=== PATIENT | male | born 1970 | race Caucasian/White ===

== ENCOUNTER 2020-09-27 06:46 | Emergency (ER) | payer SELFPAY ==
[2020-09-27] VITALS (7 sets, daily range): BP systolic 138–216; BP diastolic 82–115; PULSE 56–82; RESP 16–18; TEMP 36.7; O2SAT 96–98; BMI 26.7
--- NOTE | 2020-09-27 07:07 | XRR_ITS ---
PROCEDURE INFORMATION: Exam: XR Chest Exam date and time: 09/27/2020 7:07 AM Age: 50 years old Clinical indication: Pain; Other: Tightness; Additional info: Chest pain TECHNIQUE: Imaging protocol: XR of the chest. Views: 1 view. COMPARISON: CR Chest 1 [place] [id number] 03/04/2018 12:20 PM FINDINGS: Lungs: No consolidation. Pleural spaces: Unremarkable. No pleural effusion. No pneumothorax. Heart/Mediastinum: No cardiomegaly. Bones/joints: No acute fracture. XR/XR chest 1V portable [id number] IMPRESSION: No acute findings.
--- NOTE | 2020-09-27 07:19 | W.ED.GENADLT ---
HPI - General Adult General: Chief complaint: General Medical Stated complaint: HIGH BP Time Seen by Provider: 09/27/20 06:53 History of Present Illness: HPI narrative: 50-year-old male presents emergency room with complaint of hypertension. He has had problems with accelerated hypertension in the past. He also had some chest discomfort no radiation of pain no shortness of breath. He has a history of previous CVA and bilateral carotid endarterectomy but no history of heart disease he did have evaluation was told it was unremarkable. He is currently on Plavix. He initially reported an allergy to amlodipine which causes heart rate to drop. On review of his chart he is actually bisoprolol that he took that triggered this. He is not having any difficulty speech swallowing or gait. No vision difficulties. He denies shortness of breath diaphoresis nausea or vomiting. Onset (ago): minute(s) Radiation: non-radiation Severity: mild Quality: aching Relieving factors: none Exacerbating factors: none Associated symptoms: Reports chest pain and headache(s); Deny confusion, cough, diaphoresis, decreased appetite, dyspnea, fevers/chills, malaise, nausea, rash, palpitations, seizures, short of breath, syncope, vomiting or weakness Treatments prior to arrival: none Review of Systems Const: Denies: malaise or diaphoresis ENMT: Denies: throat pain, ear or mastoid pain, nasal discharge or nasal congestion Card: Reports: chest pain; Denies: palpitations or syncope Resp: Denies: dyspnea GI: Denies: nausea or vomiting : Denies: flank pain, dysuria, urinary frequency or urinary urgency Skin/Breast: Denies: rash Neuro: Reports: headache(s); Denies: confusion PFSH ED PFSH: Medical History Carotid arterial disease Carotid artery stenosis Chest pain CVA (cerebral vascular accident) Headache Hyperlipidemia Hypertension Smoking Surgical History (Updated 09/28/20 @ 11:35 by Maria L Garduno MD) History of bilateral carotid endarterectomy History of mandibular surgery Hx of hand surgery Family History (Updated 09/28/20 @ 11:05 by Seema Nieves RN) Grandfather CAD (coronary artery disease) Cancer Father CAD (coronary artery disease) Grandmother CAD (coronary artery disease) Mother Hypertension Family/Other Diabetes Lung disease Denies family history of Clotting disorder Dementia Chronic kidney disease (CKD) Suicide Anesthesia complication Bleeding disorder Stroke Social History (Updated 09/28/20 @ 08:47 by Seema Nieves RN) Smoking and tobacco status: current some day smoker Alcohol intake: current Physical Exam Const: COMMON NORMALS: no acute distress GENERAL APPEARANCE: cooperative and comfortable ORIENTATION/CONSCIOUSNESS: Yes awake, Yes oriented to person, Yes oriented to place and Yes oriented to time HENMT: COMMON NORMALS: normocephalic, atraumatic and hearing grossly normal bilaterally HEAD & SCALP: normocephalic and atraumatic Eye: COMMON NORMALS: Equal, round and reactive pupils present, EOMs intact bilaterally, conjunctivae normal and no scleral icterus CONJUNCTIVA: Yes conjunctivae normal PUPIL: Yes Equal, round and reactive pupils present Neck/C-Spine: COMMON NORMALS: no JVD Resp: COMMON NORMALS: normal respiratory effort, No retractions, No use of accessory muscles and clear to auscultation bilaterally AUSCULTATION: clear to auscultation bilaterally Cardio: COMMON NORMALS: no JVD, regular rate, regular rhythm and No murmurs present (Cardio) RATE: regular rate RHYTHM: regular rhythm GI: COMMON NORMALS: Soft to palpation and No hepatosplenomegaly present AUSCULTATION: Yes normoactive bowel sounds PALPATION: Yes Soft to palpation, No Tenderness to palpation present (GI), No Guarding due to palpation present (GI) and Yes No hepatosplenomegaly present Extremity: COMMON NORMALS: normal to inspection, capillary refill normal, no clubbing, cyanosis or edema, no calf tenderness and no pedal edema Neuro: SENSORIUM/ORIENTATION: Yes oriented to person, Yes oriented to place and Yes oriented to time Skin: COMMON NORMALS: no rashes or lesions noted GENERAL SKIN EXAM: no rashes or lesions noted Course Vital Signs: Vital signs: Vital Signs Temperature 98.1 F 09/27/20 06:54 Pulse Rate 82 09/27/20 11:58 Respiratory Rate 16 09/27/20 11:58 Blood Pressure 138/82 09/27/20 11:58 Pulse Oximetry 96 09/27/20 10:00 MDM - General Adult MDM Narrative: Medical decision making narrative: Initially ordered amlodipine and metoprolol IV and p.o. for his blood pressure. He states he is allergic to amlodipine but I looked back according to the notes it was not the amlodipine gave him a problem and was bisoprolol. Which is consistent with what he was describing to me he said he was allergic to medicine and dropped his heart rate very very low. Fifi give him hydralazine and amlodipine to start we will hold off on any beta-blockers heart rate is already at the lower end of normal and he has a history of bradycardia with beta-blockers. Evaluation is normal EKG does not show anything acute and troponins are negative. I will bit concerned with his symptoms. I contacted cardiology and asked him to consult in the emergency room. They had come to see the patient however in the interim patient decided he would rather leave the ER was busy he felt he did not need to be seen any further he was comfortable with the lab work that have been done. Patient was about to leave I encountered him in the hallway and we had him take a seat in vertical flow to wait for the patient transport orderly. I reexplained to him why I felt it was important for him to see the patient transport orderly before he left. He initially agreed. Later I was informed by the nurse that he wanted to just go home. The nurse to encourage him to wait and explained to him our concerns he said he felt comfortable with what had been done and wished to leave and will make follow-up through his patient transport orderly. When I was informed of this we did call and encouraged him to continue his aspirin and Plavix we also called in isosorbide mononitrate 30 mg once daily extended release. Because the patient left before completing the full evaluation that we had recommended he was listed as a left AGAINST MEDICAL ADVICE. Lab Data: Labs: Lab Results 09/27/20 09/27/20 09/27/20 Range/Units 07:32 07:32 07:32 WBC 7.2 (4.0-10.0) 10^3/ uL RBC 4.84 (4.1-5.3) 10^6/u L Hgb 16.5 (11.7-16.6) g/dL Hct 48.3 (42.0-52.0) % MCV 99.8 H (80-94) fL MCH 34.1 H (28.0-34.0) pg MCHC 34.2 (30.0-36.0) g/dL RDW 12.2 (12.1-15.1) % Plt Count 302 (130-400) 10^3/c mm MPV 9.4 (7.4-10.4) fL Neut % (Auto) 60.0 % Lymph % (Auto) 23.8 % [place] % (Auto) 11.5 % Eos % (Auto) 3.6 % Baso % (Auto) 0.8 % Neut # (Auto) 4.32 (1.8-7.7) 10^3/u L Lymph # (Auto) 1.7 (0.8-4.8) 10^3/u L [place] # (Auto) 0.8 (0.2-0.9) 10^3/u L Eos # (Auto) 0.3 (0.0-0.8) 10^3/u L Baso # (Auto) 0.1 (0.0-0.1) 10^3/u L Nucleated RBC % (a uto) 0 % Nucleated RBCs # 0.0 /100WBC Sodium 138 (136-145) mmol/L Potassium 4.4 (3.5-5.1) mmol/L Chloride 99 (98-107) mmol/L Carbon Dioxide 26 (22-29) mmol/L Anion Gap 17.4 (5-19) BUN 10 (6-20) mg/dL Creatinine 0.9 (0.7-1.2) mg/dL GFR Calculation 89.0 L (90-130) mL/min Glucose 101 (65-115) mg/dL Calculated Osmolal ity 285 (285-295) mOsm/k g Calcium 9.6 (8.5-10.5) mg/dL Total Bilirubin 0.9 (0.15-1.2) mg/dL AST 21 (0-40) U/L ALT 19 (0-41) U/L Alkaline Phosphata se 113 (40-130) IU/L Troponin T Baselin e 6 (0-15) ng/L Troponin T 120 Min [place] (0-15) ng/L Delta Troponin T (0-10) ABS# Total Protein 6.9 (6.6-8.7) g/dL Albumin 4.5 (3.5-5.2) g/dL Globulin 2.4 (1.3-4.6) g/dL 09/27/20 Range/Units 09:50 WBC (4.0-10.0) 10^3/ uL RBC (4.1-5.3) 10^6/u L Hgb (11.7-16.6) g/dL Hct (42.0-52.0) % MCV (80-94) fL MCH (28.0-34.0) pg MCHC (30.0-36.0) g/dL RDW (12.1-15.1) % Plt Count (130-400) 10^3/c mm MPV (7.4-10.4) fL Neut % (Auto) % Lymph % (Auto) % [place] % (Auto) % Eos % (Auto) % Baso % (Auto) % Neut # (Auto) (1.8-7.7) 10^3/u L Lymph # (Auto) (0.8-4.8) 10^3/u L [place] # (Auto) (0.2-0.9) 10^3/u L Eos # (Auto) (0.0-0.8) 10^3/u L Baso # (Auto) (0.0-0.1) 10^3/u L Nucleated RBC % (a uto) % Nucleated RBCs # /100WBC Sodium (136-145) mmol/L Potassium (3.5-5.1) mmol/L Chloride (98-107) mmol/L Carbon Dioxide (22-29) mmol/L Anion Gap (5-19) BUN (6-20) mg/dL Creatinine (0.7-1.2) mg/dL GFR Calculation (90-130) mL/min Glucose (65-115) mg/dL Calculated Osmolal ity (285-295) mOsm/k g Calcium (8.5-10.5) mg/dL Total Bilirubin (0.15-1.2) mg/dL AST (0-40) U/L ALT (0-41) U/L Alkaline Phosphata se (40-130) IU/L Troponin T Baselin e (0-15) ng/L Troponin T 120 Min [place] 6.00 (0-15) ng/L Delta Troponin T 0 (0-10) ABS# Total Protein (6.6-8.7) g/dL Albumin (3.5-5.2) g/dL Globulin (1.3-4.6) g/dL EKG Data^: EKG 1: Attestation: I personally reviewed and interpreted this EKG as follows: EKG interpretation date: 09/27/20 EKG interpretation time: 07:03 Computer generated interpretation: Chest X-Ray 09/27/20 07:07 IMPRESSION: No acute findings. Other EKG comments: Normal sinus rhythm. Nonspecific ST changes secondary or early polarization. ND interval 0.149 QTc [address] changes Discharge Plan Discharge Patient Disposition: Left Against Medical Advice Condition: Stable Prescriptions: New isosorbide mononitrate 30 mg tablet extended release 24 hr 30 mg PO DAILY Qty: 30 RF: 0 No Action hydralazine 25 mg tablet 25 mg PO TID 30 Days Qty: 90 RF: 5 clonidine HCl 0.1 mg Tablet 0.1 mg PO DAILY PRN (Reason: bp greater than 160/90) RF: 0 aspirin 325 mg Tablet 325 mg PO BEDTIME RF: 0 Plavix 75 mg Tablet 75 mg PO BEDTIME RF: 0 Vitamin C 500 mg Tablet 500 mg PO ONCE RF: 0 Zocor 20 mg Tablet 20 mg PO BEDTIME RF: 0 Nitrostat 0.4 mg Tablet, Sublingual 0.4 mg SUBLINGUAL Q5M PRN (Reason: Chest Pain) RF: 0 lisinopril 40 mg Tablet 40 mg PO BID RF: 0 Fish Oil 1 cap PO ONCE RF: 0 Toda Heart Of Gold Liquid 3 - 4 drp PO BID RF: 0 Referrals: Tierra Lin NP [Primary Care Provider] - Coding Level of Care Code ED Tannery Gummer for Chg Fwd Exam Comprehensive
[2020-09-27] MEDS: aspirin 81 mg Chew Tablet 324 MG PO (07:33)
[2020-09-27 07:38] LABS: Basophils # 0.1 10^3/uL (0.0-0.1); Basophils % 0.8 %; Eosinophils # 0.3 10^3/uL (0.0-0.8); Eosinophils % 3.6 %; Hematocrit 48.3 % (42.0-52.0); Hemoglobin 16.5 g/dL (11.7-16.6); Lymphocytes # 1.7 10^3/uL (0.8-4.8); Lymphocytes % 23.8 %; Mean Corpuscular HGB Conc 34.2 g/dL (30.0-36.0); Mean Corpuscular Hemoglobin 34.1 pg (28.0-34.0); Mean Corpuscular Volume 99.8 fL (80-94); Mean Platelet Volume 9.4 fL (7.4-10.4); Monocytes # 0.8 10^3/uL (0.2-0.9); Monocytes % 11.5 %; Neutrophils # 4.32 10^3/uL (1.8-7.7); Nucleated Red Blood Cells % 0 %; Platelet Count 302 10^3/cmm (130-400); Red Blood Count 4.84 10^6/uL (4.1-5.3); Red Cell Distribution Width 12.2 % (12.1-15.1); White Blood Count 7.2 10^3/uL (4.0-10.0)
[2020-09-27] MEDS: hyDRALAzine 20 mg/mL INJ 1 mL 10 MG IVP (07:44)
[2020-09-27 07:58] LABS: Alanine Aminotransferase 19 U/L (0-41); Albumin Level 4.5 g/dL (3.5-5.2); Alkaline Phosphatase 113 IU/L (40-130); Anion Gap 17.4 (5-19); Aspartate Amino Transferase 21 U/L (0-40); Blood Urea Nitrogen 10 mg/dL (6-20); Calcium 9.6 mg/dL (8.5-10.5); Carbon Dioxide 26 mmol/L (22-29); Chloride 99 mmol/L (98-107); Globulin 2.4 g/dL (1.3-4.6); Glucose 101 mg/dL (65-115); Osmolality Calculated 285 mOsm/kg (285-295); Potassium 4.4 mmol/L (3.5-5.1); Sodium 138 mmol/L (136-145); Total Bilirubin 0.9 mg/dL (0.15-1.2); Total Protein 6.9 g/dL (6.6-8.7)
[2020-09-27 08:08] LABS: Troponin(5th) Baseline 6 ng/L (0-15)
--- NOTE | 2020-09-27 08:19 | PC.NURSE ---
PATIENT STATES HE IS FEELING TIRED SO I KNOW ITS WORKING. PATIENT IS RECLINED IN BED. VISITOR AT BEDSIDE.
--- NOTE | 2020-09-27 09:07 | ECG_ITS ---
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 Measurements Intervals [place] Rate: 55 P: 33 [place]: 149 QRS: 71 QRSD: 90 T: 60 QT: 398 QTc: 382 Interpretive Statements SINUS BRADYCARDIA EARLY REPOLARIZATION Compared to ECG 09/27/2020 07:03:39 ST (T wave) deviation still present Electronically Signed On 09-27-2020 17:33:11 CDT by Rosendo Epstein M.D. [id number]
[2020-09-27] MEDS: nitroglycerin 1 gm/inch oint Pkt 1 INCH TOPICAL (09:25)
[2020-09-27 10:20] LABS: Troponin 5 2HR Delta 0 ABS# (0-10)
--- NOTE | 2020-09-27 13:07 | ECG_ITS ---
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 Measurements Intervals [place] Rate: 70 P: 68 [place]: 149 QRS: 81 QRSD: 90 T: 70 QT: 366 QTc: 396 Interpretive Statements SINUS RHYTHM ST ELEVATION, PROBABLY EARLY REPOLARIZATION [ST ELEVATION WITH NORMALLY INFLECTED T WAVE] Compared to ECG 03/04/2018 15:28:19 ST (T wave) deviation now present Early repolarization now present Electronically Signed On 09-27-2020 17:33:21 CDT by Rosendo Epstein M.D. [id number]
--- NOTE | 2020-09-28 11:52 | DCPLANNER ---
engagement manager had message to schedule an outpatient stress test for patient. engagement manager faxed signed order to centralized scheduling. Centralized scheduling will call patient with appointment information.
--- NOTE | 2020-10-05 13:46 | DCPLANNER ---
Patient has an outpatient stress test scheduled for Sunday, October 20, 2020 at 11:30. Centralized scheduling will call patient with appointment information.
--- NOTE | 2020-11-12 09:18 | DCPLANNER ---
Patient had a follow up appointment scheduled for 10.20.20 for a stress test - patient did not attend appointment.
== END 2020-09-27 12:57 | disposition left against medical advice (07) ==
PROVIDERS: Emergency Provider Family Medicine; PCP Nurse Practitioner Family
DX: I10 Essential (primary) hypertension (principal); Z53.21 Procedure and treatment not carried out due to patient leaving prior to being seen by health care provider; Z79.82 Long term (current) use of aspirin; Z79.02 Long term (current) use of antithrombotics/antiplatelets; Z86.73 Personal history of transient ischemic attack (TIA), and cerebral infarction without residual deficits; E78.5 Hyperlipidemia, unspecified; F17.210 Nicotine dependence, cigarettes, uncomplicated
CPT/HCPCS: 71045; 80053; 84484; 85025; 93005; 96374; 99283; J0360

== ENCOUNTER 2023-02-01 10:46 | Emergency (ER) | payer MEDICAID, SELFPAY ==
[2023-02-01 11:03] VITALS: BP 169/79; PULSE 86; RESP 16; TEMP 36.8; O2SAT 98; BMI 25.8
--- NOTE | 2023-02-01 11:22 | XR_ITS ---
WS: [id number] Lumbar spine, 3 views, 02/01/2023 Clinical Data: fall pain Comparison: None. Findings: No compression fractures or subluxation is seen. There is osteoarthritic change of all the lumbar juliet tebral bodies. There is degenerative disc narrowing at all lumbar levels except L4-L5. The transverse processes and SI joints are normal. There is calcification in the wall of the abdominal aorta but no aneurysm. Impression: 1. Multilevel degenerative disc narrowing. 2. Moderate osteoarthritis of all the lumbar vertebral bodies.
--- NOTE | 2023-02-01 12:18 | ED_ITS ---
HPI - Back Pain/Injury General: Chief Complaint: Back Pain/Injury Stated Complaint: fall,back pain Time Seen by Provider: 02/01/23 12:13 History of Present Illness: Patient presents to the ER with complaints of back pain for about the last week. 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 He stepped into a hole of a newly laid waterproof bag sewer line that was covered leaves. Patient states he fell to the right and since then his back feels like he was locking up and hurts more when he drives or or walks. Patient has been taking [id number] Motrin and naproxen at home for pain but this does not give enough relief. The pain is primarily in his low back lumbar region and has intermittent numbness down his right leg. Patient also states he needs a note for work stating light duty for the next week if possible Review of Systems General: Reports: 10 or more systems reviewed and unremarkable except in HPI and below PFSH ED PFSH: Medical History Hypertension Chest pain CVA (cerebral vascular accident) Headache Hyperlipidemia Carotid artery stenosis Carotid arterial disease Smoking Surgical History History of bilateral carotid endarterectomy Hx of hand surgery History of mandibular surgery Family History Grandfather CAD (coronary artery disease) Cancer Father CAD (coronary artery disease) Grandmother CAD (coronary artery disease) Mother Hypertension Family/Other Diabetes Lung disease Denies family history of Clotting disorder Dementia Chronic kidney disease (CKD) Suicide Anesthesia complication Bleeding disorder Stroke Social History Smoking and tobacco/nicotine status: current every day tobacco/nicotine user Alcohol intake: current Substance/Drug Use: never Physical Exam Const: COMMON NORMALS: no acute distress, average body habitus, patient oriented x3, no limitations, healthy appearing, alert and well nourished HENMT: COMMON NORMALS: normocephalic, atraumatic, hearing grossly normal bilaterally, external ears normal, Normal external nose present, moist oral mucous membranes and oropharynx normal HEAD & SCALP: normocephalic and atraumatic NOSE: Normal external nose present EXTERNAL EAR: Yes external ears normal Neck/C-Spine: COMMON NORMALS: full ROM, no lymphadenopathy, supple, no meningeal signs, no JVD and Thyroid normal THYROID: Thyroid normal Chest: COMMONS NORMALS: normal inspection of the chest and normal palpation of entire chest wall Resp: COMMON NORMALS: normal respiratory effort, No retractions, No use of accessory muscles and clear to auscultation bilaterally AUSCULTATION: clear to auscultation bilaterally Cardio: COMMON NORMALS: no JVD, regular rate, regular rhythm, S1 normal heart sound present, S2 normal heart sound present, No gallops present (Cardio), No clicks present (Cardio), No murmurs present (Cardio) and No rub (Cardio) RATE: regular rate RHYTHM: regular rhythm HEART SOUNDS: S1 normal heart sound present and S2 normal heart sound present GI: COMMON NORMALS: Normal to inspection, nondistended, normoactive bowel sounds present, Soft to palpation, non-tender, No hepatosplenomegaly present and no masses PALPATION: Yes Soft to palpation and Yes No hepatosplenomegaly present Back/Pelvis: OTHER: Positive tenderness to palpation over lumbar paraspinal muscles bilaterally, no point tenderness over spinal processes. Neuro: COMMON NORMALS: patient oriented x3 SENSORIUM/ORIENTATION: Yes alert MENINGEAL SIGNS: Yes no meningeal signs Course Vital Signs: Vital signs: Vital Signs Temperature 98.2 F 02/01/23 11:03 Pulse Rate 86 02/01/23 11:03 Respiratory Rate 16 02/01/23 11:03 Blood Pressure 169/79 02/01/23 11:03 Pulse Oximetry 98 02/01/23 11:03 Oxygen Delivery Me thod Room Air 02/01/23 11:03 MDM - Back Pain/Injury Medical Decision Making Patient was walking and fell in a hole and hurt his low back. He has tenderness to palpation over lumbar region paraspinal musculatures x-rays was read office normal. Patient be discharged home on prednisone and Flexeril. Patient is to follow-up with his PCP in the next 7 to 10 days. Differential Diagnosis Likely strain of lumbar region; Unlikely lumbar radiculopathy, sciatica, renal colic, pyelonephritis, thoracic back pain, AAA or discitis Medical Records I reviewed the patient's medical records. Labs I reviewed the patient's lab results. All radiology interpretation(s) finalized by discharge Discharge Plan Discharge Patient Disposition: Home Clinical Impression: Strain of lumbar region Condition: Stable Prescriptions: No Action clonidine HCl 0.1 mg tablet 0.1 mg PO DAILY PRN (Reason: bp greater than 160/90) Qty: 60 2RF Plavix 75 mg tablet 75 mg PO BEDTIME Qty: 90 5RF Zocor 20 mg tablet 20 mg PO BEDTIME Qty: 90 4RF lisinopril 40 mg tablet 40 mg PO BID Qty: 180 1RF hydralazine 25 mg tablet 25 mg PO TID 30 Days Qty: 270 1RF aspirin 325 mg Tablet 325 mg PO BEDTIME Vitamin C 500 mg Tablet 500 mg PO ONCE Nitrostat 0.4 mg Tablet, Sublingual 0.4 mg SUBLINGUAL Q5M PRN (Reason: Chest Pain) Fish Oil 1 cap PO ONCE Toda Heart Of Gold Liquid 3 - 4 drp PO BID Discharge Orders: Discharge ED (Routine); Ordered 02/01/23 Ordered By: Vishal Vera Patient Instructions: Low Back Strain (ED) Activity Restrictions/Additional Instructions: Please take all medicine as prescribed. Please follow-up with your family practice physician within next 7 to 10 days for further evaluation and treatment as needed. If the pain becomes intolerable please return to the ER. 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
[2023-02-01 12:32] VITALS: PULSE 84; RESP 16; O2SAT 97
== END 2023-02-01 12:30 | disposition home or self-care (01) ==
PROVIDERS: Emergency Provider Emergency Medicine
DX: S39.012A Strain of muscle, fascia and tendon of lower back, initial encounter (principal); Z79.02 Long term (current) use of antithrombotics/antiplatelets; Z79.82 Long term (current) use of aspirin; I10 Essential (primary) hypertension; Z86.73 Personal history of transient ischemic attack (TIA), and cerebral infarction without residual deficits; E78.5 Hyperlipidemia, unspecified; Z72.0 Tobacco use; W18.42XA Slipping, tripping and stumbling without falling due to stepping into hole or opening, initial encounter
CPT/HCPCS: 72100; 99283

== ENCOUNTER → 2023-03-19 16:28 | Outpatient (BNVA) | payer OTHER, MEDICAID, SELFPAY | PROVIDERS: Visit Provider Internal Medicine Cardiovascular Disease | DX: R07.9 Chest pain, unspecified (principal); I65.23 Occlusion and stenosis of bilateral carotid arteries; E78.5 Hyperlipidemia, unspecified; I10 Essential (primary) hypertension; R06.02 Shortness of breath; R07.1 Chest pain on breathing | CPT/HCPCS: 36415; 80048; 85378 ==

== ENCOUNTER 2023-04-05 07:58 | Outpatient (CLI) | payer OTHER, MEDICAID, SELFPAY ==
--- NOTE | 2023-04-05 11:00 | USCV_ITS ---
Riley Vargas Age: 52 Gender: M : 1970 Exam Date: 04/05/2023 08:09 Ordering Phys: Maria L Garduno MD ([email or web address]) Technologist: MK Exam Location: [facility] [place] Indication: Eval for carotid stenosis. H/O Bilat CEA 2013 Risk Factors: Previous Vascular Surgery: Right Brachial BP: / Left Brachial BP: / Right Left Velocity (cm/s) Spectral Plaque Velocity (cm/s) Spectral Plaque Syst/Diast Broadening Syst/Diast Broadening 118.00/24.00 Prox CCA 122.00/ 38.00 131.00/33.00 Mid CCA 131.00/ 44.00 125.00/42.00 Distal CCA 136.00/ 40.00 295.00/27.00 Prox ICA 207.00/ 66.00 112.00/37.00 Mid ICA 141.00/ 54.00 92.00/ 31.00 Distal ICA 152.00/ 49.00 300.00 ECA 436.00 2.40 ICA/CCA 1.50 Antegrade Vertebral Antegrade 87.00/ 27.00 cm/s 29.00/ 13.00 cm/s Tri Subclavian Tri 350.0 216.0 0 0 FINDINGS Moderate to heavy irregular plaques of the right bifurcation and proximal internal carotid artery. Moderate to heavy heterogenous plaques at the bifurcation and internal carotid artery on the left side Antegrade flow in the vertebral arteries bilaterally. Elevated Doppler flow velocities in the external carotid arteries bilaterally Elevated velocity in the subclavian arteries bilaterally CONCLUSIONS Moderate to heavy heterogenous plaques at the bifurcations and internal carotid arteries bilaterally with a flow velocity elevation and color flow turbulence, suggesting 50 to 69% stenosis. Elevated velocities in the external carotid arteries bilaterally suggesting hemodynamically significant stenosis Elevated velocity in the right subclavian artery, may suggest subclavian stenosis Consider CTA, to better evaluate the arch vessels and the distal ICAs Dr Maria L Garduno MD [facility] (Electronically Signed) Final Date: 11 April 2023 08:40 S
== END 2023-04-05 07:59 | disposition home or self-care (01) ==
PROVIDERS: Visit Provider Internal Medicine Cardiovascular Disease
DX: I65.23 Occlusion and stenosis of bilateral carotid arteries (principal)
CPT/HCPCS: 93880

== ENCOUNTER 2023-04-05 07:58 | Outpatient (CLI) | payer OTHER, MEDICAID, SELFPAY ==
--- NOTE | 2023-04-05 08:30 | CT_ITS ---
WS: [id number] CTA THORACIC AORTA WITH AND WITHOUT CONTRAST HISTORY: chest pain /SOB TECHNIQUE: CT imaging of the thorax is performed with and without contrast. After noncontrast imaging is performed, CT angiogram is performed during injection of Omnipaque 350; 100 mL IV.. Sagittal and coronal reconstructions, sagittal and coronal MIP imaging is submitted. All CT scans at [facility] use at least one of these dose optimization techniques: automated exposure control; mA and/or k V adjustment per patient size (includes targeted exams where dose is matched to clinical indication); or iterative reconstruction. DLP: 596.34 mGy.cm COMPARISON: None available. Normal sized thoracic aorta. No aneurysm is identified. Normal aortic root and sinotubular junction. There are a few scattered calcifications and plaques within the thoracic aorta. No ulcerated plaque. Normal size pulmonary artery. Normal great vessels arising from the aorta. Moderate scattered plaque within the coronary arteries involving all 3 large vessels. Lungs are clear. No adenopathy. Normal size heart. No adrenal mass. Upper abdomen is negative. No destructive bone lesions. IMPRESSION: 1. No thoracic aortic aneurysm or dissection. 2. Mild scattered atherosclerotic plaque within the thoracic aorta. Calcified plaque in intimal thic k[place]. 3. Coronary artery calcific burden is moderate involving all 3 major arteries. 4. No pneumonia. Lungs are clear.
[2023-04-05] MEDS: iohexol 350 mg/mL 500 mL Btl (per mL) IV (08:54)
== END 2023-04-05 07:59 | disposition home or self-care (01) ==
PROVIDERS: Visit Provider Internal Medicine Cardiovascular Disease
DX: I25.10 Atherosclerotic heart disease of native coronary artery without angina pectoris (principal); I70.0 Atherosclerosis of aorta; I65.23 Occlusion and stenosis of bilateral carotid arteries; E78.5 Hyperlipidemia, unspecified; I10 Essential (primary) hypertension
CPT/HCPCS: 71275; Q9967

== ENCOUNTER 2023-05-10 13:56 | Outpatient (CLI) | payer OTHER, MEDICAID, SELFPAY ==
[2023-05-10] MEDS: iohexol 350 mg/mL 500 mL Btl (per mL) IV (14:23)
--- NOTE | 2023-05-10 14:30 | CT_ITS ---
WS: [id number] CTA NECK TECHNIQUE: Contrast enhanced CTA of the neck with coronal and sagittal reformatted images and maximum intensity projection (MIP) images. NASCET criteria utilized. CLINICAL INFORMATION: I77.9 - Disorder of arteries and arterioles, unspecified COMPARISON: Ultrasound 04/05/2023 DLP: 220.[address] scans at [facility] use at least one of these dose optimization techniques: automated e xposure control; mA and/or kV adjustment per patient size (includes targeted exams where dose is matc hed to clinical indication); or iterative reconstruction. FINDINGS: RIGHT: Postoperative changes prior RIGHT CEA. No significant RIGHT ICA stenosis. LEFT: Prior postoperative changes of prior LEFT CEA. LEFT ICA stenosis measures 48%. 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 Petrous and cavernous carotid calcification. LEFT subclavian artery is patent. RIGHT subclavian arter y not well visualized due to right-sided contrast injection. Proximal RIGHT subclavian artery appears patent. Partially visualized paranasal sinuses are well aerated with mild mucosal thickening. Mucosal thicken ing RIGHT mastoid air cells. LEFT mastoid air cells are well aerated. Normal posterior nasopharynx. L ed apices are well aerated. Mild spondylitic changes cervical spine. IMPRESSION: 1. Postoperative changes prior RIGHT CEA. No significant RIGHT ICA stenosis. 2. Prior postoperative changes LEFT CEA. LEFT ICA stenosis measures 48%. 3. 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 4. Vertebral arteries are patent.
== END 2023-05-10 13:57 | disposition home or self-care (01) ==
LOC: RAD 13:56
PROVIDERS: Visit Provider Internal Medicine Cardiovascular Disease
DX: I77.9 Disorder of arteries and arterioles, unspecified (principal)
CPT/HCPCS: 70498; Q9967

== ENCOUNTER → 2024-06-24 16:28 | Outpatient (BNVA) | payer MEDICAID, SELFPAY | PROVIDERS: Visit Provider Internal Medicine Cardiovascular Disease | DX: I63.9 Cerebral infarction, unspecified (principal); R07.9 Chest pain, unspecified | CPT/HCPCS: 93005 ==

== ENCOUNTER 2024-08-19 12:52 | Outpatient (CLI) | payer MEDICAID, SELFPAY ==
--- NOTE | 2024-08-19 12:58 | USCV_ITS ---
Riley Vargas Age: 54 Gender: M : 1970 Exam Date: 08/19/2024 13:39 Ordering Phys: Maria L Garduno MD ([email or web address]) Technologist: JAMES Exam Location: [facility] [place] Indication: CVA Risk Factors: Previous Vascular Surgery: Right Brachial BP: / Left Brachial BP: / Right Left Velocity (cm/s) Spectral Plaque Velocity (cm/s) Spectral Plaque Syst/Diast Broadening Syst/Diast Broadening 103.50/19.30 Prox CCA 92.90 / 19.90 104.80/34.90 Mid CCA 104.40/ 19.70 94.40/ 34.90 Distal CCA 82.10 / 17.70 195.20/31.20 Prox ICA 77.90 / 9.80 73.60/ 10.10 Mid ICA 343.10/ 123.40 92.40/ 27.80 Distal ICA 148.80/ 33.70 189.30 ECA 241.40 2.10 ICA/CCA 4.20 Antegrade Vertebral Antegrade 82.70/ 23.80 cm/s 22.80/ 8.90 cm/s Tri Subclavian Tri 186.6 194.5 0 0 FINDINGS comp 2023 CONCLUSIONS History of Bilateal CEA's. Calcified atheromatous plaque in both ICA's Intimal thickening in the common carotid arteries and internal carotid arteries bilaterally. Right ICA stenosis 50-69%. Moderate atheromatous plaque right carotid bulb/ICA. Left MID ICA stenosis 70-99% with markedly elevated PSV progressed since 2023. Recommend CTA neck. Moderate atheromatous plaque left carotid bulb/ICA. Normal antegrade Doppler flow noted in the right vertebral artery. Normal antegrade Doppler flow noted in the left vertebral artery. Syd Saldana MD (Electronically Signed) Final Date: 20 August 2024 17:09 S
--- NOTE | 2024-08-19 12:58 | USCV_ITS ---
Riley Vargas Age: 54 Gender: M : 1970 Exam Date: 08/19/2024 13:14 Ordering Phys: Maria L Garduno MD ([email or web address]) Technologist: JAMES Exam Location: [facility] [place] Indication: CVA BP: 156 / 79 HR: 70 Rhythm: Sinus Technical Quality: Adequate MEASUREMENTS (Male / Female) Normal Values 2D ECHO LV Diastolic Diameter PLAX 4.4 cm 4.2 - 5.9 / 3.9 - 5.3 cm IVS Diastolic Thickness 1.3 cm 0.6 - 1.0 / 0.6 - 0.9 cm IVS Systolic Thickness 1.9 cm LVPW Diastolic Thickness 1.2 cm 0.6 - 1.0 / 0.6 - 0.9 cm LVPW Systolic Thickness 1.5 cm LVOT Diameter 2.0 cm LV Ejection Fraction 2D Teich 64.6 % LV Ejection Fraction MOD 4C 68.6 % LV Ejection Fraction MOD 2C 51.3 % LV Ejection Fraction 2C AL 53.8 % LA Diameter 3.6 cm RA Systolic Volume 4C AL 30.0 ml RA Systolic Volume 4C MOD 29.2 ml LA Sys Volume AL 28.2 cm cubed LA Sys Volume Index AL 13.8 cm cubed/m squared Aorta at Sinotubular Diameter 2.1 cm IVC Diameter 1.6 cm M-MODE LA Ao Ratio MM 1.3 AV Cusp Separation MM 1.3 cm DOPPLER AV Peak Velocity 207.3 cm/s LVOT Peak Velocity 140.0 cm/s AV Area Cont Eq vti 2.1 cm squared AV Area Cont Eq pk 2.2 cm squared MV Peak Velocity 101.0 cm/s MV Area PHT 3.1 cm squared Mitral E to A Ratio 1.0 TR Peak Velocity 79.0 cm/s TR Peak Gradient 2.5 mmHg PV Peak Velocity 127.0 cm/s FINDINGS Left Ventricle Normal left ventricular size, systolic function and wall thickness, with no regional wall motion abnormalities. Left ventricular ejection fraction is estimated at 60 %. Grade I/IV diastolic dysfunction (abnormal relaxation filling pattern), normal to mildly elevated filling pressures. Right Ventricle The right ventricle is normal in size and function. Right Atrium The right atrium is normal in size. Left Atrium The left atrium is normal in size. Mitral Valve Structurally normal mitral valve without significant stenosis or prolapse. There is no mitral regurgitation. Aortic Valve Mild aortic valve calcification. Mild aortic valve stenosis, mean gradient 6.5 mmHg, CAROL 2.1 cm squared. Mild aortic valve regurgitation. Tricuspid Valve Structurally normal tricuspid valve without significant stenosis or regurgitation. Pulmonary artery systolic pressure is normal. Pulmonic Valve Structurally normal pulmonic valve without significant stenosis. There is no pulmonic regurgitation. Pericardium Normal pericardium without effusion. Aorta Normal ascending aorta dimension. IVC The inferior vena cava appears normal. CONCLUSIONS Normal left ventricular size, systolic function and wall thickness, with no regional wall motion abnormalities. Left ventricular ejection fraction is estimated at 60 %. Grade I/IV diastolic dysfunction (abnormal relaxation filling pattern), normal to mildly elevated filling pressures. Mild aortic valve calcification. Mild aortic valve stenosis, mean gradient 6.5 mmHg, CAROL 2.1 cm squared. Mild aortic valve regurgitation. There is no pericardial effusion. Right atrial pressure is around 5 mm of mercury. Matthew Beach MD (Electronically Signed) Final Date: 03 September 2024 21:32 S
== END 2024-08-19 12:53 | disposition home or self-care (01) ==
PROVIDERS: Visit Provider Internal Medicine Cardiovascular Disease
DX: I65.23 Occlusion and stenosis of bilateral carotid arteries (principal); Z86.73 Personal history of transient ischemic attack (TIA), and cerebral infarction without residual deficits; R93.1 Abnormal findings on diagnostic imaging of heart and coronary circulation; I35.8 Other nonrheumatic aortic valve disorders; I35.0 Nonrheumatic aortic (valve) stenosis; I35.1 Nonrheumatic aortic (valve) insufficiency
CPT/HCPCS: 93306; 93880

== ENCOUNTER 2024-09-17 13:02 | Outpatient (CLI) | payer MEDICAID, SELFPAY ==
--- NOTE | 2024-09-17 13:30 | CT_ITS ---
WS: [id number] CTA NECK TECHNIQUE: Contrast enhanced CTA of the neck with coronal and sagittal reformatted images and maximum intensity projection (MIP) images. NASCET criteria utilized. CLINICAL INFORMATION: 70% blockage Left carotid COMPARISON: 2023 DLP: 251.[address] scans at [facility] use at least one of these dose optimization techniques: automated exposure control; mA and/or kV adjustment per patient size (includes targeted exams where dose is matched to clinical indication); or iterative reconstruction. FINDINGS: RIGHT: Less than 50% RIGHT ICA stenosis. Postoperative changes RIGHT CEA. LEFT: Progressed high-grade LEFT ICA stenosis with irregular ulcerated atheromatous plaque. Stenosis measures greater than 80% with a small string-like residual lumen approximately 1.2 cm from the bifurcation. LEFT ICA remains patent to the skull base with a slightly reduced caliber. Codominant and patent vertebral arteries bilaterally to the basilar junction. Severe stenosis of the LEFT vertebral artery origin. Proximal subclavian arteries are patent. Lung apices are well aerated. Normal posterior nasopharynx and parapharyngeal fat. CT/CT angio neck [id number] IMPRESSION: 1. High-grade LEFT ICA stenosis measuring greater than 80% approximate 1.2 cm from the bifurcation. Irregular ulcerated atheromatous plaque at the bifurcatio n. ICA remains patent to the skull base with a slightly reduced caliber. 2. No significant RIGHT ICA stenosis. Prior RIGHT CEA. 3. Codominant and patent vertebral arteries bilaterally. Vertebral arteries ar e patent to the basilar junction. Severe stenosis LEFT vertebral artery origin.
[2024-09-17] MEDS: iohexol 350 mg/mL 500 mL Btl (per mL) IV (13:51)
== END 2024-09-17 13:03 | disposition home or self-care (01) ==
LOC: RAD 13:03
PROVIDERS: PCP Internal Medicine Cardiovascular Disease; Visit Provider Internal Medicine Cardiovascular Disease
DX: I65.23 Occlusion and stenosis of bilateral carotid arteries (principal); I65.29 Occlusion and stenosis of unspecified carotid artery
CPT/HCPCS: 70498